=== PATIENT | female | born 1945 | race Caucasian/White ===

== ENCOUNTER 2023-04-24 02:47 | Inpatient (IN) | payer MEDICARE, SELFPAY ==
[2023-04-24] VITALS (25 sets, daily range): BP systolic 74–142; BP diastolic 44–95; PULSE 54–141; RESP 11–21; TEMP 36.1–36.6; O2SAT 93–99; BMI 25.0; BMI 22.4
--- NOTE | 2023-04-24 03:01 | ED.VIS.CHEST ---
HPI History of Present Illness Chief Complaint: Palpitations [facility] Medical History (Updated 04/24/23 @ 02:51 by Ayleen Carrasco) Afib Hyperlipemia Home Medications ascorbic acid (vitamin C) 1,000 mg tablet,extended release (C Complex) 1,000 mg PO DAILY 04/24/23 [History Last Taken Unknown] aspirin 325 mg capsule 325 mg PO DAILY heart health 04/24/23 [History Last Taken Unknown] cholecalciferol (vitamin D3) 25 mcg (1,000 unit) capsule (Vitamin D3) 25 mcg PO DAILY 04/24/23 [History Last Taken Unknown] coQ10 (ubiquinol) 100 mg capsule 100 mg PO DAILY 04/24/23 [History Last Taken Unknown] cyanocobalamin (vitamin B-12) 1 tab PO DAILY 04/24/23 [History Last Taken Unknown] diltiazem HCl 180 mg capsule,extended release 24 hr (Cardizem CD) 180 mg PO DAILY arrhythmia 04/24/23 [History Last Taken Unknown] lovastatin 20 mg tablet,extended release 24 hr (Altoprev) 20 mg PO .COMPLEX 04/24/23 [History Last Taken Unknown] magnesium 250 mg tablet 500 mg PO DAILY PRN constipation 04/24/23 [History Last Taken Unknown] omega 3 350 mg-dha 235 mg-epa 90 mg-fish oil 597 mg capsule,delay rel (Mart-3) 1 cap PO DAILY 04/24/23 [History Last Taken Unknown] Allergy/AdvReac Type Severity Reaction Status Date / Time No Known Allergies Allergy Verified 04/24/23 02:56 Surgical History (Updated 04/24/23 @ 02:51 by Ayleen Carrasco) H/O left mastectomy Social History Smoking Status: Never smoker EXAM Physical Exam Const Vital Signs: 04/24/23 02:49 04/24/23 02:49 04/24/23 03:02 Temperature 97.1 F L Temperature Source Temporal Pulse Rate 135 H Respiratory Rate 16 Respiratory Effort Normal Non-Labored Blood Pressure 123/81 H Blood Pressure Mean 95 Pulse Ox 98 Oxygen Delivery Method Room Air Room Air 04/24/23 03:11 04/24/23 03:24 04/24/23 03:44 Temperature Temperature Source Pulse Rate 130 H 118 H 117 H Respiratory Rate 17 14 16 Respiratory Effort Blood Pressure 142/95 H 98/61 95/76 Blood Pressure Mean 110 73 82 Pulse Ox 95 98 99 Oxygen Delivery Method Room Air Room Air 04/24/23 02:56 04/24/23 03:00 04/24/23 03:10 Temperature Temperature Source Pulse Rate 127 H 141 H 133 H Respiratory Rate 13 21 H 18 Respiratory Effort Blood Pressure 142/95 H Blood Pressure Mean 107 Pulse Ox 97 96 97 Oxygen Delivery Method 04/24/23 03:20 04/24/23 03:25 04/24/23 03:30 Temperature Temperature Source Pulse Rate 116 H 128 H 106 H Respiratory Rate 12 19 H 19 H Respiratory Effort Blood Pressure 98/61 Blood Pressure Mean 73 Pulse Ox 96 95 93 Oxygen Delivery Method Room Air 04/24/23 03:31 04/24/23 03:39 04/24/23 03:40 Temperature Temperature Source Pulse Rate 120 H 128 H 125 H Respiratory Rate 16 17 19 H Respiratory Effort Blood Pressure 88/57 L 74/44 L Blood Pressure Mean 67 52 Pulse Ox 96 94 Oxygen Delivery Method 04/24/23 03:43 04/24/23 03:46 04/24/23 03:50 Temperature Temperature Source Pulse Rate 113 H 116 H 113 H Respiratory Rate 12 14 11 L Respiratory Effort Blood Pressure 95/76 98/70 Blood Pressure Mean 84 80 Pulse Ox 95 95 95 Oxygen Delivery Method 04/24/23 04:00 04/24/23 04:39 04/24/23 05:00 Temperature Temperature Source Pulse Rate 126 H 119 H 109 H Respiratory Rate 14 16 16 Respiratory Effort Blood Pressure 89/72 L 106/64 108/74 Blood Pressure Mean 79 78 85 Pulse Ox 98 95 Oxygen Delivery Method Room Air Room Air Room Air MDM MDM MDM Narrative Medical decision making narrative: HISTORY OF PRESENT ILLNESS: 78-year-old female here with shortness of breath and palpitations began approximately 1 and half hours prior to ED arrival Notes history of A-fib. States he had similar symptoms but years ago. She further states symptoms began tonight acutely. They are nonexertional. Denies any bleeding diathesis or vomiting. Denies history of heart attacks. She is currently not on a blood thinner. The patient denies recent surgery in the last 4 weeks or immobilization in the last 3 days, denies previous diagnosis of DVT or PE, hemoptysis, unilateral leg swelling or malignancy with treatment the last 6 months or palliative. No estrogen use noted. REVIEW OF SYSTEMS: Pertinent positives: Shortness of breath, palpitations Pertinent negatives: Chest pain PHYSICAL EXAM: Nursing triage notes reviewed, Vital signs reviewed Constitutional: please see [facility] HENT: MMM Eyes: Pupils equal round and reactive to light, Extraocular muscles intact Neck: No stridor, no JVD, full neck ROM Lungs: Clear to auscultation, No wheezing or rales. No increased work of breathing, no conversational dyspnea, no accessory muscle use, no nasal flaring. No respiratory distress noted Heart: Fast irregular rhythm, No murmurs, No rubs and No gallops, 2+ distal pulses (radial, femoral, posterior tibial) in all extremities Abdomen: Soft, there is no tenderness, rigidity, rebound or guarding, no obvious peritoneal signs, no palpable pulsatile abdominal masses, no auscultated abdominal bruit : No CVAT Extremities: No edema Neuro: No focal neurological deficits, cranial nerves II through XII intact, 5/5 strength in all extremities. Intact sensation to light touch in all extremities, 2+ reflexes bilateral patella tendons. Normal gait. No ataxia. Skin: No rash or lesions noted MEDICAL DECISION MAKING: Chief Complaint: Palpitations, shortness of breath External records reviewed: No prior records noted in [employer] system, assess clinic thank however there is no records for either Factors affecting care: Per patient report A-fib, hyperlipidemia Social determinants of health: Denies illicit drug use History obtained from others: none Consults: Cardiology (Dr. Mustafa), Internal Medicine (Dr. Garcia) [facility] Narrative: Patient was initially tachycardic otherwise hemodynamically stable, afebrile nontoxic-appearing. Heart lung exam consistent with A-fib with RVR I considered the following differential diagnosis: A-fib with RVR, anemia, electrolyte maladies, ACS, PE, pneumonia, I obtained a broad lab and imaging workup to further elucidate etiology patient complaints I treated the patient with a 500 cc crystalloid bolus, 10 mg diltiazem bolus as well as 2 g magnesium infusion for chemical rate control. ALL IMAGES (IF OBTAINED) HAVE BEEN PERSONALLY REVIEWED AND INTERPRETED BY MYSELF. EKG with left bundle branch block, left axis even, prolonged QT interval, A-fib with RVR. No prior for comparison. CBC without leukocytosis, severe anemia, no thrombocytopenia. BMP within normal limits suggestive of no increased ventricular stretch, myocyte stretch or transmural pressure Initial troponin grossly elevated consistent myocardial ischemia BMP with hyponatremia, hypokalemia, no anion gap, no JAYCEE I have personally reviewed the patient's chest x-ray. Chest x-ray is unremarkable for pulmonary edema, pneumothorax, pneumonia or focal cardiopulmonary abnormality. The synthesis of the patient's history, physical exam, labs, images consultations suggest A-fib with RVR resulting in type II demand ischemia elevated troponin along with minor electrolyte abnormalities including hyponatremia and hypokalemia. Given patient elevated troponin and stop her elevated heart rate she be admitted for rate control, rehydration and further evaluation by cardiology. Spoke to Dr. Mustafa who recommended starting patient on Eliquis for anticoagulation. He did not think the patient's EKG was renewals representative of acute STEMI. Recommended observation for rate control. The patient and/or family, caregivers express understanding. The patient and/or family, caregivers agrees with the plan. Shared decision making: I will have a discussion with the patient and or visitors regarding risk/benefits of further testing or admission. They will be made aware of of the risk/benefits inherent in this decision they will be given the opportunity to voice understanding. Total critical care time today provided was at least 35 minutes. This excludes separately billable procedures. Critical care time (if documented) is secondary to the patient having high probability of clinically significant/life threatening deterioration in the patient's condition which required my urgent intervention. Impression: 1. A-fib with RVR 2. NSTEMI 3. Hypernatremia 4. Hypokalemia Dispo: PCU Lab Data Labs: Laboratory Results - last 24 hr 04/24/23 02:59 WBC 7.5 RBC 4.78 Hgb 14.7 Hct 45.7 MCV 95.6 MCH 30.8 MCHC 32.2 RDW Std Deviation 46.0 H RDW Coeff of Yfn 13.1 Plt Count 300 MPV 9.2 Immature Gran % (Auto) 0.300 Neut % (Auto) 59.7 Lymph % (Auto) 27.8 [place] % (Auto) 8.6 Eos % (Auto) 2.7 Baso % (Auto) 0.9 Absolute Neuts (auto) 4.5 Absolute Lymphs (auto) 2.07 Nucleated RBC % 0 Sodium 147 H Potassium 3.4 L Chloride 115 H Carbon Dioxide 25.0 Anion Gap 7 BUN 18 Creatinine 0.57 Estim Creat Clear Calc 34.42 Est GFR (MDRD) Af Amer 131 Est GFR (MDRD) Non-Af 108 BUN/Creatinine Ratio 31.4 H Glucose 105 Calcium 9.0 Troponin I High Sens 148 H* B-Natriuretic Peptide 88.4 Radiography Chest X-Ray - ED: Read by ED Physician Diagnostic Testing: Clinical Impression(s) from Imaging Studies Chest X-Ray 04/24/23 03:26 IMPRESSION: No radiographic evidence of acute cardiopulmonary disease. Electronically Signed: Asif Coombs MD at 4:29 EST , Discharge Plan Triage Chief Complaint: Palpitations ED Provider: Jose Carlos Hawkins Dx/Rx/DC Orders Prescriptions: No Action diltiazem HCl [Cardizem CD] 180 mg capsule,extended release 24hr 180 mg PO DAILY Altoprev 20 mg tablet extended release 24 hr 20 mg PO .COMPLEX Rx Instructions: 20 mg orally take every other day; aspirin 325 mg capsule 325 mg PO DAILY C Complex 1,000 mg tablet extended release 1,000 mg PO DAILY cyanocobalamin (vitamin B-12) 1 tab PO DAILY coQ10 (ubiquinol) 100 mg capsule 100 mg PO DAILY magnesium 250 mg tablet 500 mg PO DAILY PRN (Reason: constipation) Patient Comments: takes as needed; one 500 mg tablet Mart-3 350 mg-235 mg- 90 mg-597 mg capsule,delayed release(DR/EC) 1 cap PO DAILY cholecalciferol (vitamin D3) [Vitamin D3] 25 mcg (1,000 unit) capsule 25 mcg PO DAILY Primary Care Provider: SADI DAVILA Referrals: [facility] Doctor,Out of [Non-Staff] -
--- NOTE | 2023-04-24 03:02 | EKG12_ITS ---
Test Reason : PALPITATIONS Blood Pressure : / mmHG Vent. Rate : 137 BPM Atrial Rate : 000 BPM P-R Int : 000 ms QRS Dur : 120 ms QT Int : 340 ms P-R-T Axes : 000 -42 139 degrees QTc Int : 513 ms Atrial fibrillation with rapid ventricular response Left axis deviation Left ventricular hypertrophy with QRS widening ( R in aVL , Kelvin product , Romhilt-Cabrera ) Inferior infarct , age undetermined Marked ST abnormality, possible anterolateral subendocardial injury Abnormal ECG Confirmed by HUONG JUAREZ, BRONWYN ([id number]), health editor RHINA DEWITT ([id number]) on 04/26/2023 1:38:49 P M Referred By: EVITA Confirmed By:BIPIN BORJA MD
[2023-04-24 03:11] LABS: Absolute Lymphocyte Count 2.07 X10^3/uL (0.83-4.51); Absolute Neutrophil Count 4.5 X10^3/uL (2.0-7.7); Basophil# 0.07 X10^3/uL; Basophil% 0.9 % (0-1); Eosinophils% 2.7 % (0-5); Hematocrit 45.7 % (37-47); Hemoglobin 14.7 g/dL (12.0-15.0); Lymphocyte # 2.07 X10^3/ul (0.83-4.51); Lymphocyte % 27.8 % (19-41); Mean Corp Hgb Conc 32.2 g/dL (32-36); Mean Corpuscular Hgb 30.8 pg (27.0-32.0); Mean Corpuscular Volume 95.6 fL (81-99); Mean Platelet Vol. 9.2 fl (6.2-12.0); Monocyte# 0.64 X10^3/uL; Monocyte% 8.6 % (0-10); NRBC Flagged by Analyzer 0 % (0-5); Neutrophil # 4.45 X10^3/uL (2.7-7.7); Neutrophil % 59.7 % (47-70); Platelet Count 300 K/mm3 (150-450); RBC Distribution Width CV 13.1 % (11.6-14.6); Red Blood Count 4.78 M/mm3 (4.2-5.4); White Blood Count 7.5 K/mm3 (4.4-11.0)
[2023-04-24] MEDS: dilTIAZem 25 MG/5 ML Vial 10 MG IV BOLUS (03:11)
[2023-04-24] MEDS: 0.9% Normal Saline (1000mL) 1,000 ML 500 ML IV (03:12)
--- NOTE | 2023-04-24 03:26 | RAD_ITS ---
INDICATION: chest pain EXAMINATION/TECHNIQUE: X-RAY - XR Chest 1 View COMPARISON: None. FINDINGS: LINES/DEVICES: None. LUNGS: No pulmonary edema or focal airspace consolidation. No sizable pleural effusion. No pneumothorax detected. MEDIASTINUM AND CARDIOVASCULAR STRUCTURES: Heart size within normal limits for imaging technique. Mediastinal contours unremarkable. BONES AND SOFT TISSUES: No acute findings. RAD/Chest 1 View (Portable) IMPRESSION: No radiographic evidence of acute cardiopulmonary disease. Electronically Signed: Asif Coombs MD at 4:29 EST ,
[2023-04-24 03:32] LABS: BNP,B-Type NATRIURETIC PEPTIDE 88.4 pg/mL (0-100)
[2023-04-24] MEDS: Magnesium Sulfate 2 GM in Dextrose 5%-Water (100mL Bag) 100 ML IV (03:39)
[2023-04-24 03:43] LABS: Anion Gap 7 (5-15); BUN 18 mg/dL (7-18); BUN/Creat Ratio 31.4 RATIO (10-20); Chloride 115 mmol/L (98-107); Creatinine, Serum 0.57 mg/dL (0.55-1.02); EST Glomerular Filtration Rate 108 mL/min (>60); Est Glom Filt Rate - Afr Amer 131 mL/min (>60); Estimated Creatinine Clearance 34.42 ml/min; Glucose 105 mg/dL (74-106); Potassium 3.4 mmol/L (3.5-5.1); Sodium Level 147 mmol/L (136-145); Troponin-I HS (w/2H Reflex) 148 pg/mL (3.0-54.0)
[2023-04-24] MEDS: APIXABAN 2.5 MG TABLET (WCH) 5 MG PO (04:35)
[2023-04-24] MEDS: Aspirin 325 MG Tablet PO (04:35)
[2023-04-24 05:08] LABS: Reflex Troponin-HS? (from REC) Y
--- NOTE | 2023-04-24 05:19 | HP.PCM.HOS_ITS ---
HPI - General General Date of Admission: 04/24/23 Date of Service: 04/24/23 Chief Complaint: Palpitations, dyspnea. HPI Narrative The patient is a 69 y/o F w/ PMHx: Hx Breast CA ductal carcinoma s/p L mastectomy, PAF, HTN, HLD who presents to the [facility] ED on 04/24/23 with history of onset of dyspnea and palpitations, racing heart and dyspnea starting approximately 1.5 hours prior to ED arrival with concern for atrial fibrillation with RVR as she has had similar episode previously prompting eventual ED evaluation. She does report that has been several years since she has had an episode. She does report currently the palpation is lessening and improvement of her dyspnea. Workup in the ED included T97.1, heart rate 135, BP 123/81, re spiratory rate 16, 98% on room air--> BP 89/72, respiratory rate 14, heart rate 126, CBC with WBC 7.5, hemoglobin 14.7, platelet 300 without marked shift, BMP with sodium 147, potassium 3.4, chloride 115, troponin 148, BNP 8.4, EKG with left bundle branch block with mildly prolonged QT with atrial fibrillation with RVR, chest x-ray with no acute cardiopulmonary findings. In the ED patient ministered diltiazem 10 mg IV x 1 as well as a normal saline IV bolus. In the ED patient ministered magnesium 2 g IV x 1, diltiazem 10 mg IV x 1, aspirin full-strength, Eliquis 5 mg p.o. x 1 as well as 1500 mL normal saline. ED discussed case with Dr. Mustafa. [facility] Medical History (Updated 04/24/23 @ 05:[address] Kimberlee Garcia MD) History of ductal carcinoma in situ (DCIS) of breast HTN (hypertension) Hyperlipemia PAF (paroxysmal atrial fibrillation) Home Medications ascorbic acid (vitamin C) 1,000 mg tablet,extended release (C Complex) 1,000 mg PO DAILY 04/24/23 [History Last Taken Unknown] aspirin 325 mg capsule 325 mg PO DAILY heart health 04/24/23 [History Last Taken Unknown] cholecalciferol (vitamin D3) 25 mcg (1,000 unit) capsule (Vitamin D3) 25 mcg PO DAILY 04/24/23 [History Last Taken Unknown] coQ10 (ubiquinol) 100 mg capsule 100 mg PO DAILY 04/24/23 [History Last Taken Unknown] cyanocobalamin (vitamin B-12) 1 tab PO DAILY 04/24/23 [History Last Taken Unknown] diltiazem HCl 180 mg capsule,extended release 24 hr (Cardizem CD) 180 mg PO DAILY arrhythmia 04/24/23 [History Last Taken Unknown] lovastatin 20 mg tablet,extended release 24 hr (Altoprev) 20 mg PO .COMPLEX 04/24/23 [History Last Taken Unknown] magnesium 250 mg tablet 500 mg PO DAILY PRN constipation 04/24/23 [History Last Taken Unknown] omega 3 350 mg-dha 235 mg-epa 90 mg-fish oil 597 mg capsule,delay rel (Bypro-3) 1 cap PO DAILY 04/24/23 [History Last Taken Unknown] Allergy/AdvReac Type Severity Reaction Status Date / Time No Known Allergies Allergy Verified 04/24/23 02:56 Family History (Updated 04/24/23 @ 05:[address] Kimberlee Garcia MD) Mother Cardiac arrhythmia Renal cancer Father CVA (cerebral vascular accident) Hypertension Surgical History H/O left mastectomy Social History (Updated 04/24/23 @ 05:[address] Kimberlee Garcia MD) household members: spouse current occupational status: retired and other details: Retired teacher. Smoking Status: Never smoker alcohol intake: never substance use type: does not use ROS ROS Narrative Admission Review of Systems: CONSTITUTIONAL: No weight loss, fever, chills, + weakness or fatigue. HEENT: Eyes: No visual loss, blurred vision, double vision or yellow sclerae. Ears, Nose, Throat: No hearing loss, sneezing, congestion, runny nose or sore throat. SKIN: No rash or itching, lesions, wounds. CARDIOVASCULAR: + Palpitations, racing heart. No chest pain, chest pressure or chest discomfort, edema, orthopnea, syncopal events. RESPIRATORY: + shortness of breath. No cough or sputum, wheezing, hemoptysis. GASTROINTESTINAL: No anorexia, nausea, vomiting or diarrhea, abdominal pain, melena, BRBPR. GENITOURINARY: No dysuria, frequency, urgency or retention. NEUROLOGICAL: No headache, dizziness, syncope, paralysis, ataxia, numbness or tingling in the extremities, focal weakness, change in bowel or bladder control, seizure. MUSCULOSKELETAL: + muscle, back pain, joint pain or stiffness. HEMATOLOGIC: No anemia, bleeding or bruising. LYMPHATICS: No enlarged nodes. No history of splenectomy. PSYCHIATRIC: No history of depression or anxiety. ENDOCRINOLOGIC: No reports of sweating, cold or heat intolerance. No polyuria or polydipsia. ALLERGIES: No history of asthma, hives, eczema or rhinitis. Vital Signs Vital Signs Vital Signs: 04/24/23 02:49 04/24/23 02:49 04/24/23 03:02 Temperature 97.1 F L Temperature Source Temporal Pulse Rate 135 H Respiratory Rate 16 Respiratory Effort Normal Non-Labored Blood Pressure 123/81 H Blood Pressure Mean 95 Pulse Ox 98 Oxygen Delivery Method Room Air Room Air 04/24/23 03:11 04/24/23 03:24 04/24/23 03:44 Temperature Temperature Source Pulse Rate 130 H 118 H 117 H Respiratory Rate 17 14 16 Respiratory Effort Blood Pressure 142/95 H 98/61 95/76 Blood Pressure Mean 110 73 82 Pulse Ox 95 98 99 Oxygen Delivery Method Room Air Room Air 04/24/23 02:56 04/24/23 03:00 04/24/23 03:10 Temperature Temperature Source Pulse Rate 127 H 141 H 133 H Respiratory Rate 13 21 H 18 Respiratory Effort Blood Pressure 142/95 H Blood Pressure Mean 107 Pulse Ox 97 96 97 Oxygen Delivery Method 04/24/23 03:20 04/24/23 03:25 04/24/23 03:30 Temperature Temperature Source Pulse Rate 116 H 128 H 106 H Respiratory Rate 12 19 H 19 H Respiratory Effort Blood Pressure 98/61 Blood Pressure Mean 73 Pulse Ox 96 95 93 Oxygen Delivery Method Room Air 04/24/23 03:31 04/24/23 03:39 04/24/23 03:40 Temperature Temperature Source Pulse Rate 120 H 128 H 125 H Respiratory Rate 16 17 19 H Respiratory Effort Blood Pressure 88/57 L 74/44 L Blood Pressure Mean 67 52 Pulse Ox 96 94 Oxygen Delivery Method 04/24/23 03:43 04/24/23 03:46 04/24/23 03:50 Temperature Temperature Source Pulse Rate 113 H 116 H 113 H Respiratory Rate 12 14 11 L Respiratory Effort Blood Pressure 95/76 98/70 Blood Pressure Mean 84 80 Pulse Ox 95 95 95 Oxygen Delivery Method 04/24/23 04:00 04/24/23 04:39 04/24/23 05:00 Temperature Temperature Source Pulse Rate 126 H 119 H 109 H Respiratory Rate 14 16 16 Respiratory Effort Blood Pressure 89/72 L 106/64 108/74 Blood Pressure Mean 79 78 85 Pulse Ox 98 95 Oxygen Delivery Method Room Air Room Air Room Air Weight Weight: 132 lb 11.492 oz Body Mass Index (BMI) 25.0 Physical Exam Narrative Physical Examination: General: Awake, alert, oriented x 3 and cooperative, seated upright in the ED bed, fatigued but no acute distress. Skin: Normal color, normal turgor, no icterus, no cyanosis. HEENT: AT/NC, EOMI, PERRLA, mildly dry MM, no carotid bruits or JVD noted. Lungs: CTA bilaterally, moderate effort, mild decrease BL bases, no rales, ronchi or wheezing. Heart: Irregular irregular; no gallop, rub audible. Abdomen: Soft, NTTP, ND, distant normal BS, no HSM. Extremities: No cyanosis, clubbing, or edema. Neurological: Patient awake, alert, oriented as noted, cognitive function intact; pupils equally reactive to light and accommodation, cranial nerves II- XII grossly normal, moving all 4 extremities, no focal deficits, strength mildly to moderately globally decreased secondary to acute presentation. Psychiatric: Affect appears fatigued, no acute evidence of depressive or anxiety feelings. Results Lab / Micro Data 04/24/23 02:59 04/24/23 02:59 Labs: Laboratory Results - last 24 hr 04/24/23 02:59: WBC 7.5, RBC 4.78, Hgb 14.7, Hct 45.7, MCV 95.6, MCH 30.8, MCHC 32.2, RDW Std Deviation 46.0 H, RDW Coeff of Yfn 13.1, Plt Count 300, MPV 9.2, Immature Gran % (Auto) 0.300, Neut % (Auto) 59.7, Lymph % (Auto) 27.8, [place] % (Auto) 8.6, Eos % (Auto) 2.7, Baso % (Auto) 0.9, Absolute Neuts (auto) 4.5, Abs olute Lymphs (auto) 2.07, Nucleated RBC % 0, Sodium 147 H, Potassium 3.4 L, Chloride 115 H, Carbon Dioxide 25.0, Anion Gap 7, BUN 18, Creatinine 0.57, Estim Creat Clear Calc 34.42, Est GFR (MDRD) Af Amer 131, Est GFR (MDRD) Non-Af 108, BUN/Creatinine Ratio 31.4 H, Glucose 105, Calcium 9.0, Troponin I High Sens 148 H*, B-Natriuretic Peptide 88.4 Imagaing Radiology Impression Chest X-Ray 04/24/23 03:26 IMPRESSION: No radiographic evidence of acute cardiopulmonary disease. Electronically Signed: Asif Coombs MD at 4:29 EST , Assessment & Plan Assessment/Plan (1) Atrial fibrillation with RVR: PLAN: Plan The patient is a 69 y/o F w/ PMHx: Hx Breast CA ductal carcinoma s/p L mastectomy, PAF, HTN, HLD who presents to the [facility] ED on 04/24/23 with history of onset of dyspnea and palpitations, racing heart and dyspnea starting approximately 1.5 hours prior to ED arrival with concern for atrial fibrillation with RVR as she has had similar episode previously prompting eventual ED evaluation. #1. Paroxsymal atrial fibrillation w/ RVR with indeterminate cardiac enzyme suspected secondary to ongoing RVR but certainly could be an evolving NSTEMI: EK G in ED w/ atrial fibrillation w/ RVR. Patient administered Cardizem bolus in ED. Will admit to PCU, maintain on telemetry, obtain cardiac enzyme serial set, obtain magnesium level, obtain ECHO, obtain TSH level. Patient administered Eliquis 5 mg p.o. x 1 in the ED however in case enzymes significantly trends upward and there is need for cardiac catheterization we will hold this and next dose due would plan potentially therapeutic Lovenox versus heparin drip unless enzyme trending down then would continue with oral eliquis. Will continue aspirin therapy. Rate improved with cardizem bolus x 1. Will restart home diltiazem. Will request cardiology consult. #2. Hypokalemia: Admission K+ 3.4, magnesium level requested, supplementation given, repeat level in AM. # 3. History of breast cancer, ductal carcinoma: Status post left mastectomy, considered in remission, encourage continued outpatient follow-up as previously arranged. # 4. Hypertension: BP low normal after Cardizem, improving, will restart home oral diltiazem regimen. #5. Hyperlipidemia: We will continue patient on statin therapy, FLP in AM. #6. DVT prophylaxis: Patient administered Eliquis 5 mg p.o. x 1 in the ED h owever in case enzymes significantly trends upward and there is need for cardiac catheterization we will hold this and next dose due would plan potentially therapeutic Lovenox versus heparin drip unless enzyme trending down then would continue with oral eliquis. #7. CODE status: Patient HCPJENNIFER is her who is present and living will is currently in place. Discussed CODE status at length including difference between FULL code, DNR-CCA and DNR-CC status. Following discussions about the diff erences in these status, requested Full Code status. Advanced Care Planning Face to Face Time: 16 minutes. Charges/Coding Visit Charges Inpatient E&M: 76265 Init Hosp L3 Procedures Hospitalists Procedures: 26001 Advncd Care Plan 30 Min
[2023-04-24] MEDS: 0.9% Normal Saline (1000mL) 1,000 ML 999 ML IV (05:34)
[2023-04-24 05:55] LABS: Troponin-I HS 340 pg/mL (3.0-54.0)
[2023-04-24 06:02] LABS: Magnesium 3.1 mg/dL (1.6-2.6)
--- NOTE | 2023-04-24 06:37 | ECHOD_ITS ---
Reason For Study: AFib/Flutter Procedure This was a 2D Doppler, Color Flow transthoracic echocardiogram. Exam performed portable in patient room. Left Ventricle Normal LV size. The estimated ejection fraction is 55 %. No evidence for diastolic dysfunction. No regional wall motion abnormalities noted. Right Ventricle Normal RV size. Normal systolic function. Atria Normal left atrium. Normal right atrium. No doppler evidence for ASD. Mitral Valve There is moderate mitral annular calcification. There is no mitral valve stenosis. No mitral valve insufficiency. Tricuspid Valve There is no tricuspid stenosis. Trivial tricuspid valve insufficiency. Pulmonary artery systolic pressure is 25 mmHg. Aortic Valve Trisinus/trileaflet aortic valve. There is no aortic stenosis. Trivial aortic valve insufficiency. Pulmonic Valve There is no pulmonic valvular stenosis. No pulmonic valve insufficiency. MMode/2D Measurements & Calculations LVIDd: 3.5 cm IVSd: 1.6 cm Ao root diam: 3.5 cm LVIDs: 2.4 cm LVPWd: 1.3 cm LA dimension: 3.1 cm RVDd: 3.4 cm FS: 33.2 % LAV(MOD-bp): 27.9 ml LA A4 area: 11.6 cm2 RA A4 area: 12.2 cm2 LAV(MOD-bp) Indexed: 18.5 ml/m2 LAV(MOD-sp2): 30.6 ml LAV(MOD-sp4): 25.1 ml TAPSE: 2.0 cm Time Measurements MV dec time: 0.24 sec Doppler Measurements & Calculations MV E max anuj: 49.2 cm/sec Lat Peak E' Anuj: 6.0 cm/sec Med Peak E' Anuj: 4.3 cm/sec MV A max anuj: 100.0 cm/sec E/E' lat: 8.2 E/E' med: 11.5 MV E/A: 0.49 MV V2 max: 100.7 cm/sec MV P1/2t max anuj: 51.6 cm/sec Ao V2 max: 147.9 cm/sec MV max P.1 mmHg MV P1/2t: 76.0 msec Ao max P.8 mmHg MV V2 mean: 39.7 cm/sec MV dec slope: 198.9 cm/sec2 Ao V2 mean: 116.5 cm/sec MV mean P.85 mmHg Ao mean P.8 mmHg MV V2 VTI: 29.6 cm MVA(P1/2t): 2.9 cm2 Ao V2 VTI: 33.5 cm AV (velocity ratio): 1.0 AI max anuj: 415.2 cm/sec LV V1 max: 151.1 cm/sec PA V2 max: 84.0 cm/sec AI max P.0 mmHg LV V1 max P.1 mmHg PA V2 mean: 55.2 cm/sec AI dec slope: 165.1 cm/sec2 LV V1 mean P.3 mmHg AI P1/2t: 736.7 msec LV V1 mean: 109.9 cm/sec LV V1 VTI: 33.9 cm TR max anuj: 234.5 cm/sec TR max P.0 mmHg ECHO/Echo Complete Interpretation Summary The estimated ejection fraction is 55 %. No evidence for diastolic dysfunction. Trivial aortic valve insufficiency. Ordering Physician: Kimberlee Garcia Performed By: Dimas Torres RCS
[2023-04-24] MEDS: Potassium Chloride Oral Tablet 20 MEQ 40 MEQ PO (07:07)
[2023-04-24] MEDS: dilTIAZem CD 180 MG Capsule PO (07:07)
--- NOTE | 2023-04-24 08:18 | EKG12_ITS ---
Test Reason : Blood Pressure : / mmHG Vent. Rate : 058 BPM Atrial Rate : 058 BPM P-R Int : 140 ms QRS Dur : 116 ms QT Int : 458 ms P-R-T Axes : 061 -44 122 degrees QTc Int : 449 ms Sinus bradycardia Left axis deviation Left ventricular hypertrophy with QRS widening and repolarization abnormality ( R in aVL , Kelvin pr oduct , Romhilt-Cabrera ) Cannot rule out Septal infarct , age undetermined Inferior infarct , age undetermined Abnormal ECG When compared with ECG of 24-APR-2023 02:51, MANUAL COMPARISON REQUIRED, DATA IS UNCONFIRMED Confirmed by EDGAR JUAREZ, LESLIE ([id number]), editorial cartoonist RHINA DEWITT ([id number]) on 04/27/2023 11:00:29 AM Referred By: [place] Confirmed By:LESLIE HERNÁNDEZ MD
[2023-04-24 09:34] LABS: Troponin-I HS 573 pg/mL (3.0-54.0)
--- NOTE | 2023-04-24 11:35 | CON.PCM.CA_ITS ---
Assessment & Plan Assessment/Plan (1) Atrial fibrillation with RVR: PLAN: Converted to sinus rhythm. We will keep her on current dose of diltiazem as her blood pressure and heart rate are on the low side. I did recommend Eliquis. Explained the risks and benefits. Patient will discuss with her primary parish visitor on Wednesday. She prefers this approach.From a cardiac standpoint patient is stable and can be discharged home. She can follow-up with her primary parish visitor as an outpatient. HPI Consult Data Date of Consult: 04/24/23 HPI Narrative Reason for Consultation: Atrial fibrillation with RVR HPI Narrative: EDUIN SMITH, is a 78 F who presents with palpitations. She was found to be in A-fib with RVR.She was given IV Cardizem in the emergency room and was admitted to the PCU because her high-sensitivity troponin was minimally elevated. Patient denies any chest pain. She has converted to sinus rhythm. She is completely asymptomatic. She has history of paroxysmal A-fib and has a parish visitor in [place] who she follows with. Review of systems: All systems reviewed. All system negative except as in HPI [facility] Medical History (Updated 04/24/23 @ 05:[address] Kimberlee Garcia MD) History of ductal carcinoma in situ (DCIS) of breast HTN (hypertension) Hyperlipemia PAF (paroxysmal atrial fibrillation) Home Medications ascorbic acid (vitamin C) 1,000 mg tablet,extended release (C Complex) 1,000 mg PO DAILY 04/24/23 [History Last Taken Unknown] aspirin 325 mg capsule 325 mg PO DAILY heart health 04/24/23 [History Last Taken Unknown] cholecalciferol (vitamin D3) 25 mcg (1,000 unit) capsule (Vitamin D3) 25 mcg PO DAILY 04/24/23 [History Last Taken Unknown] coQ10 (ubiquinol) 100 mg capsule 100 mg PO DAILY 04/24/23 [History Last Taken Unknown] cyanocobalamin (vitamin B-12) 1 tab PO DAILY 04/24/23 [History Last Taken Unknown] diltiazem HCl 180 mg capsule,extended release 24 hr (Cardizem CD) 180 mg PO DAILY arrhythmia 04/24/23 [History Last Taken Unknown] lovastatin 20 mg tablet,extended release 24 hr (Altoprev) 20 mg PO .COMPLEX 04/24/23 [History Last Taken Unknown] magnesium 250 mg tablet 500 mg PO DAILY PRN constipation 04/24/23 [History Last Taken Unknown] omega 3 350 mg-dha 235 mg-epa 90 mg-fish oil 597 mg capsule,delay rel ([place]-3) 1 cap PO DAILY 04/24/23 [History Last Taken Unknown] Allergy/AdvReac Type Severity Reaction Status Date / Time No Known Allergies Allergy Verified 04/24/23 02:56 Family History (Updated 04/24/23 @ 05:[address] Kimberlee Garcia MD) Mother Cardiac arrhythmia Renal cancer Father CVA (cerebral vascular accident) Hypertension Surgical History H/O left mastectomy Social History (Updated 04/24/23 @ 05:[address] Kimberlee Garcia MD) household members: spouse current occupational status: retired and other details: Retired teacher. Smoking Status: Never smoker alcohol intake: never substance use type: does not use Physical Exam Const alert and oriented x3 HEENT normocephalic Eyes no scleral icterus Resp normal respiratory effort Skin no rashes or lesions noted Risk Stratification Risk Stratification Applicable: No Charges/Coding Visit Charges Inpatient E&M: 82800 Init Hosp L2 Objective Data Vital Signs: Vital Signs Temp Pulse Resp BP Pulse Ox O2 Del Method 97.8 F 54 L 18 111/65 96 Room Air 04/24/23 08:30 04/24/23 08:30 04/24/23 08:30 04/24/23 08:30 04/24/23 08:30 04/24/23 08:30 Oxygen Delivery Method Room Air Weight: 118 lb 13.266 oz Body Mass Index (BMI) 22.4 Intake & Output: Intake and Output for Last 24 Hours 04/22/23 04/23/23 04/24/23 23:59 23:59 23:59 Intake Total 2103 / 2104 Balance 2103 Lab / Micro Data 04/24/23 02:59 04/24/23 02:59 Labs: Laboratory Results - last 24 hr 04/24/23 02:59: WBC 7.5, RBC 4.78, Hgb 14.7, Hct 45.7, MCV 95.6, MCH 30.8, MCHC 32.2, RDW Std Deviation 46.0 H, RDW Coeff of Yfn 13.1, Plt Count 300, MPV 9.2, Immature Gran % (Auto) 0.300, Neut % (Auto) 59.7, Lymph % (Auto) 27.8, [place] % (Auto) 8.6, Eos % (Auto) 2.7, Baso % (Auto) 0.9, Absolute Neuts (auto) 4.5, Absolute Lymphs (auto) 2.07, Nucleated RBC % 0, Sodium 147 H, Potassium 3.4 L, Chloride 115 H, Carbon Dioxide 25.0, Anion Gap 7, BUN 18, Creatinine 0.57, Estim Creat Clear Calc 34.42, Est GFR (MDRD) Af Amer 131, Est GFR (MDRD) Non-Af 108, BUN/Creatinine Ratio 31.4 H, Glucose 105, Calcium 9.0, Troponin I High Sens 148 H*, B-Natriuretic Peptide 88.4 04/24/23 05:04: Magnesium 3.1 H, Troponin I High Sens 340 H* 04/24/23 08:51: Troponin I High Sens 573 H* Cardiology Labs/Tests 04/24/23 02:59: WBC 7.5, RBC 4.78, Hgb 14.7, Hct 45.7, MCV 95.6, MCH 30.8, MCHC 32.2, Plt Count 300, MPV 9.2, Immature Gran % (Auto) 0.300, Neut % (Auto) 59.7, Lymph % (Auto) 27.8, [place] % (Auto) 8.6, Eos % (Auto) 2.7, Baso % (Auto) 0.9, Absolute Neuts (auto) 4.5, Nucleated RBC % 0, Sodium 147 H, Potassium 3.4 L, Chloride 115 H, Carbon Dioxide 25.0, Anion Gap 7, BUN 18, Creatinine 0.57, Est GFR (MDRD) Af Amer 131, Est GFR (MDRD) Non-Af 108, BUN/Creatinine Ratio 31.4 H, Glucose 105, Calcium 9.0, B-Natriuretic Peptide 88.4 04/24/23 05:04: Magnesium 3.1 H Rhythm: EKG: ECHO: Stress Test: Cardiac Cath: PCI: CT Surgery: Holter monitor: EPS: PPM: CXR: Chest CT Scan: Radiography Diagnostic Testing: Radiology Impression Chest X-Ray 04/24/23 03:26 IMPRESSION: No radiographic evidence of acute cardiopulmonary disease. Electronically Signed: Asif Coombs MD at 4:29 EST ,
--- NOTE | 2023-04-24 12:21 | DS.PCM_ITS ---
Providers Date of Admission: 04/24/23 Date of Discharge: 04/24/23 Primary Care Physician: SADI DAVILA Consultations 04/24/23 06:37 Consult: Cardiology Routine Consulting Provider: Gayle Mustafa Reason for Consult: PAF with RVR, elevated troponin EMERGENT Consult: No MD Notified: Yes Date Notified: 04/24/23 Time Notified: 05:27 Method of Notification: ED Physician Initiated Reason For Visit: PAF WITH RVR, ELEVATED TROPONIN Diagnosis Discharge Diagnosis (1) Atrial fibrillation with RVR: Status: Acute Code(s): I48.91 - Unspecified atrial fibrillation Medications at Discharge Home Medications ascorbic acid (vitamin C) 1,000 mg tablet,extended release (C Complex) 1,000 mg PO DAILY 04/24/23 aspirin 325 mg capsule 325 mg PO DAILY heart health 04/24/23 cholecalciferol (vitamin D3) 25 mcg (1,000 unit) capsule (Vitamin D3) 25 mcg PO DAILY 04/24/23 coQ10 (ubiquinol) 100 mg capsule 100 mg PO DAILY 04/24/23 cyanocobalamin (vitamin B-12) 1 tab PO DAILY 04/24/23 diltiazem HCl 180 mg capsule,extended release 24 hr (Cardizem CD) 180 mg PO DAILY arrhythmia 04/24/23 lovastatin 20 mg tablet,extended release 24 hr (Altoprev) 20 mg PO .COMPLEX 04/24/23 magnesium 250 mg tablet 500 mg PO DAILY PRN constipation 04/24/23 omega 3 350 mg-dha 235 mg-epa 90 mg-fish oil 597 mg capsule,delay rel ([place]-3) 1 cap PO DAILY 04/24/23 Hospital Course Operations None Procedures None Summary of Care Provided Minutes Spent on Discharge: 20 Hospital Course: Mrs. Loza is a 78-year-old white female who presents emergency department hours, hospital on the early on the morning of 04/24/2023 with acute onset shortness of breath and palpitations that started about 1-1/2 hours prior to arrival to the emergency department. She noticed her heart was racing as well. She has a history of atrial fibrillation and at baseline is on aspirin and takes diltiazem 180 mg daily. She reported it has been several years since she has had an episode like this and follows with a bill of lading clerk in [facility]. It sounds like as if she has not seen her bill of lading clerk in some time as well. Vital signs on presentation showed a temperature of 97.1, heart rate of 135, blood pressure is 123/81, respiratory rate 16 oxygen saturations were 98% on room air. CBC was unremarkable. BMP showed some mild hyponatremia with a sodium of 147, hypokalemia with a potassium of 3.4 and initial troponin was 148. Her BNP was unremarkable at 8.4. EKG shows a left bundle branch block with a mildly long QT and A-fib with RVR. Chest x-ray was unremarkable. In the emergency room room she received diltiazem 10 mg x 1 dose and a full dose aspirin as well as Eliquis 5 mg p.o. and IV fluids with a total volume of 1500 cc. The case was discussed with negative Dr. Mustafa prior to admission. She was admitted to the PCU and monitored on telemetry. Cardiac enzymes were cycled however the patient did not have any chest pain throughout her hospital course. Her electrolytes were replaced. Her cardiac enzymes did trend up however cardiology feels like this is likely rate induced due to her RVR and evaluated the patient and felt that she could be discharged back on her home Cardizem given the fact that she is now back in normal sinus rhythm and completely asymptomatic. We did obtain an echocardiogram during her hospital course which demonstrated an ejection fraction of 55% with no evidence of diastolic dysfunction, no wall motion abnormality and trivial aortic valve insufficiency. He recommended starting Eliquis however the patient preferred to discuss this further with her primary bill of lading clerk before initiating. Her [id number] score is 4 and we did discuss the reasons why she probably should be started on full anticoagulation but again she preferred to talk to her primary bill of lading clerk first. She was able to be discharged home with no medication changes on 04/24/2023. We have asked her to follow-up with her primary bill of lading clerk and call on Wednesday to schedule an ap pointment to be seen as soon as availability permits. Hospital stay was much shorter than anticipated due to patient converting spontaneously back in normal sinus rhythm and being asymptomatic with an unremarkable echocardiogram. Discharge diagnoses: Paroxysmal atrial fibrillation with RVR Troponin elevation secondary to A-fib with RVR Hypokalemia-resolved Hypertension Hyperlipidemia History of breast cancer Physical Exam Const alert, oriented x3, no apparent distress, average body habitus, no limitations, healthy appearing and well nourished Constitutional Narrative: Very pleasant, older white female, sitting on the edge of the bed, appears comfortable and nontoxic, at bedside, patient appears younger than stated age General Appearance: cooperative, comfortable, well kempt and well developed HEENT normocephalic, head/scalp atraumatic, hearing grossly normal bilaterally and moist oral mucous membranes HEENT Narrative: Mallampati 2, no thrush Resp normal respiratory effort, no retractions, no use of accessory muscles and clear to auscultation bilaterally Auscultation: Negative for rales, rhonchi or wheezes Cardio regular rate, regular rhythm, S1 normal heart sound, S2 normal heart sound, no murmurs, no rub, no gallops and no clicks GI normal to inspection, nondistended, normoactive bowel sounds, soft to palpation and non-tender Extremity no clubbing, cyanosis or edema Neuro oriented x3, moves all extremities and no focal motor deficits Speech: speech normal Psych affect normal Psych Narrative: Very pleasant, interacts appropriately Weight / BMI Weight Weight: 53.9 kg Body Mass Index (BMI) 22.4 ABG / Lab / Microbiology Data 04/24/23 02:59 04/24/23 02:59 Laboratory: Laboratory Results - last 24 hr 04/24/23 02:59: WBC 7.5, RBC 4.78, Hgb 14.7, Hct 45.7, MCV 95.6, MCH 30.8, MCHC 32.2, RDW Std Deviation 46.0 H, RDW Coeff of Yfn 13.1, Plt Count 300, MPV 9.2, Immature Gran % (Auto) 0.300, Neut % (Auto) 59.7, Lymph % (Auto) 27.8, [place] % (Auto) 8.6, Eos % (Auto) 2.7, Baso % (Auto) 0.9, Absolute Neuts (auto) 4.5, Absolute Lymphs (auto) 2.07, Nucleated RBC % 0, Sodium 147 H, Potassium 3.4 L, Chloride 115 H, Carbon Dioxide 25.0, Anion Gap 7, BUN 18, Creatinine 0.57, Estim Creat Clear Calc 34.42, Est GFR (MDRD) Af Amer 131, Est GFR (MDRD) Non-Af 108, BUN/Creatinine Ratio 31.4 H, Glucose 105, Calcium 9.0, Troponin I High Sens 148 H*, B-Natriuretic Peptide 88.4 04/24/23 05:04: Magnesium 3.1 H, Troponin I High Sens 340 H* 04/24/23 08:51: Troponin I High Sens 573 H* Radiography Diagnostic Testing: Radiology Impression Chest X-Ray 04/24/23 03:26 IMPRESSION: No radiographic evidence of acute cardiopulmonary disease. Electronically Signed: Asif Coombs MD at 4:29 EST , Echocardiogram 04/24/23 06:37 Interpretation Summary The estimated ejection fraction is 55 %. No evidence for diastolic dysfunction. Trivial aortic valve insufficiency. Ordering Physician: Kimberlee Garcia Performed By: Dimas Torres RCS D/C Instructions Discharge Diet: Low fat / Low cholesterol Meaningful Use Info Meaningful Use Diagnoses (Choose all that apply): None applicable Discharge Plan Admission Admit Date/Time: 04/24/23 05:19 Primary Reason for Your Visit: Palpitations/shortness of breath Attending Provider: Cathie Metcalf Primary Care Provider: SADI DAVILA Consulting Providers: Gayle Mustafa; Kimberlee Garcia Instructions Additional Instructions / Restrictions: 1. You were found to have recurrent A-fib with RVR. Please follow-up with your primary bill of lading clerk to discuss ongoing management as well as to discuss starting systemic anticoagulation with an increased risk of stroke due to your atrial fibrillation. Discharge Orders/Prescriptions Prescriptions: Continued diltiazem HCl [Cardizem CD] 180 mg capsule,extended release 24hr 180 mg PO DAILY Altoprev 20 mg tablet extended release 24 hr 20 mg PO .COMPLEX Rx Instructions: 20 mg orally take every other day; aspirin 325 mg capsule 325 mg PO DAILY C Complex 1,000 mg tablet extended release 1,000 mg PO DAILY cyanocobalamin (vitamin B-12) 1 tab PO DAILY coQ10 (ubiquinol) 100 mg capsule 100 mg PO DAILY magnesium 250 mg tablet 500 mg PO DAILY PRN (Reason: constipation) Patient Comments: takes as needed; one 500 mg tablet [place]-3 350 mg-235 mg- 90 mg-597 mg capsule,delayed release(DR/EC) 1 cap PO DAILY cholecalciferol (vitamin D3) [Vitamin D3] 25 mcg (1,000 unit) capsule 25 mcg PO DAILY Referrals / Follow Up: SADI DAVILA [Other] [facility] [address] Doctor,Out of [Non-Staff] - Disposition Disposition (needs filled in before D/C Order can be placed): Home, Self Care Charges/Coding Visit Charges Inpatient E&M: 95373 Disch Hosp
--- NOTE | 2023-04-24 14:46 | CASEMGMT ---
TINO GORDILLO Discharge Planning Assessment: This RN CM met with pt at bedside. Pt alert with spouse at bedside. Noted pt with discharge order and preparing to get dressed to leave. No new prescriptions noted in DC instructions. Pt denies any discharge needs or concerns at this time. Pt declined to provide pharmacy for record as she stated she is not from here. Duc Almaguer RN CM
== END 2023-04-24 15:04 | disposition home or self-care (01) | DRG 309 ==
LOC: ED 03:45 → PCU 05:37
PROVIDERS: Admitting Provider Family Medicine; Emergency Provider Emergency Medicine; Visit Provider Internal Medicine
DX: I48.0 Paroxysmal atrial fibrillation (principal); E87.0 Hyperosmolality and hypernatremia; I10 Essential (primary) hypertension; E78.5 Hyperlipidemia, unspecified; I45.81 Long QT syndrome; E87.6 Hypokalemia; Z90.12 Acquired absence of left breast and nipple; Z79.82 Long term (current) use of aspirin
CPT/HCPCS: 36415; 71045; 80048; 83735; 83880; 84484; 85025; 93005; 93306; 94668; 99285; J7040; Q9957; A4216

== ENCOUNTER 2024-01-22 15:50 | Emergency (ER) | payer MEDICARE, SELFPAY ==
[2024-01-22] VITALS (11 sets, daily range): BP systolic 96–165; BP diastolic 55–79; PULSE 47–60; RESP 11–19; TEMP 36.3–37; O2SAT 94–98; BMI 23.5
--- NOTE | 2024-01-22 16:10 | RAD_ITS ---
EXAM: XR CHEST, 1 VIEW CLINICAL INDICATION: dizziness TECHNIQUE: Frontal view of the chest. COMPARISON: No relevant prior studies available. FINDINGS: LUNGS AND PLEURAL SPACES: Unremarkable. No consolidation or edema. No pneumothorax. No effusion. HEART: Unremarkable. Cardiac silhouette not enlarged. MEDIASTINUM: Central airways and mediastinal contour are unremarkable. BONES/JOINTS: Unremarkable. No acute fracture. SOFT TISSUES: Unremarkable. RAD/Chest 1 View (Portable) IMPRESSION: No radiographic evidence of acute cardiopulmonary disease. Electronically Signed: Flako Mendez MD at 17:13 EDT ,
--- NOTE | 2024-01-22 16:13 | EKG12_ITS ---
Test Reason : DIZZY Blood Pressure : / mmHG Vent. Rate : 052 BPM Atrial Rate : 052 BPM P-R Int : 148 ms QRS Dur : 138 ms QT Int : 472 ms P-R-T Axes : 067 -40 117 degrees QTc Int : 438 ms Sinus bradycardia Left axis deviation Left bundle branch block Abnormal ECG Confirmed by Samuel Corea ([id number]), editor & co founder SHLOMO JOYCE ([id number]) on 01/24/2024 10:24:05 AM Referred By: TA/MAYRA Confirmed By:Samuel Corea
--- NOTE | 2024-01-22 16:18 | ED.RN ---
HOSE INSPECTOR ASLANDIES AT BEDSIDE FOR ORTHO'S, HE REQUESTED NO SITTING ORTHO'S.
[2024-01-22] MEDS: 0.9% Normal Saline (1000mL) 1,000 ML 999 ML IV (16:19)
--- NOTE | 2024-01-22 16:19 | EDS_ITS ---
HPI <AYANNA Powell - Last Filed: 01/22/24 18:57> History of Present Illness Chief Complaint: Dizziness Narrative Narrative: Patient is a 78-year-old female with history of atrial fibrillation, hyperlipidemia who presents to the [facility] for complaints of dizziness. Patient states that she is on Xarelto 20 mg daily, she is also on flecainide as well as the tells them. Patient is over the last 3 days, she is noticing that she is getting more dizzy. She states the dizziness is of a lightheadedness feeling. She states that her head gets swimmy. And she feels like she needs to sit down. She denies any spinning sensation, denies any nausea or vomiting. Denies any chest pain or shortness of breath. [facility] <AYANNA Powell - Last Filed: 01/22/24 18:57> [facility] Medical History (Updated 01/22/24 @ 18:[address] Doc Reed MD) History of ductal carcinoma in situ (DCIS) of breast HTN (hypertension) PAF (paroxysmal atrial fibrillation) Hyperlipemia Home Medications ?Medication ?Instructions ?Recorded ?Last Taken ?Type ascorbic acid (vitamin C) 1,000 mg 1,000 mg PO DAILY vitamin 04/24/23 Unknown History tablet,extended release (C Complex) cholecalciferol (vitamin D3) 25 25 mcg PO DAILY vitamin 04/24/23 Unknown History mcg (1,000 unit) capsule (Vitamin D3) coQ10 (ubiquinol) 100 mg capsule 100 mg PO DAILY supplement 04/24/23 Unknown History cyanocobalamin (vitamin B-12) 1 tab PO DAILY vitamin 04/24/23 Unknown History diltiazem HCl 180 mg 180 mg PO DAILY arrhythmia 04/24/23 Unknown History capsule,extended release 24 hr (Cardizem CD) lovastatin 20 mg tablet,extended 20 mg PO .COMPLEX cholesterol 04/24/23 Unknown History release 24 hr (Altoprev) magnesium 250 mg tablet 500 mg PO DAILY PRN constipation 04/24/23 Unknown History omega 3 350 mg-dha 235 mg-epa 90 1 cap PO DAILY supplement 04/24/23 Unknown History mg-fish oil 597 mg capsule,delay rel (Abell-3) rivaroxaban PO 01/22/24 Unknown History Allergy/AdvReac Type Severity Reaction Status Date / Time No Known Allergies Allergy Verified 01/22/24 15:53 Family History (Updated 04/24/23 @ 05:[address] Kimberlee Garcia MD) Mother Cardiac arrhythmia Renal cancer Father CVA (cerebral vascular accident) Hypertension Surgical History H/O left mastectomy Social History (Updated 04/24/23 @ 05:[address] Kimberlee Garcia MD) household members: spouse current occupational status: retired and other details: Retired teacher. Smoking Status: Former smoker alcohol intake: never substance use type: does not use ROS <AYANNA Powell - Last Filed: 01/22/24 18:57> ROS ED ROS Narrative Constitutional: Negative for fever, chills, weight loss, weakness Eyes: Negative for vision loss, vision change, double vision ENT: Negative for any sore throat, ear pain, congestion Cardiovascular: Negative for any chest pain, tightness. Positive palpitations Respiratory: Negative for any cough, sputum production, hemoptysis, dyspnea, dyspnea on exertion, orthopnea Gastrointestinal: Negative for any abdominal pain, nausea, vomiting, diarrhea, constipation, blood in stool, blood in vomit : Negative for any urinary frequency, dysuria, retention, blood in urine Muscle skeletal: Negative for any neck pain, back pain Neurological: Negative for any headache, syncope. Positive for feeling of dizziness, lightheadedness Skin: Negative for any rashes, itching, abrasions, lacerations Psychiatric: Negative for any depression, anxiety, stress, suicidal ideation, homicidal ideation Hematologic: Negative for any excessive bruising, easy bleeding EXAM <AYANNA Powell - Last Filed: 01/22/24 18:57> Physical Exam Narrative Exam Narrative: Vital signs reviewed. Patient was alert and orient x 4. I did perform orthostatic vital signs, they did appear to be positive with the change of 20 points in the systolic blood pressure. Patient did become slightly dizzy during standing. HEET: Head normocephalic atraumatic, TMs clear bilaterally. Posterior pharynx is clear, dry mucous membranes. Nares clear bilaterally. Neck: Supple with no lymphadenopathy or tenderness. No signs of meningismus. Cardiac: Bradycardic rate no murmurs gallops or rubs, equal peripheral pulses bilaterally. Respiratory: Lungs clear to auscultation bilaterally. No chest tenderness. Abdomen: Soft, nontender, nondistended. No abdominal bruit or pulsatile masses. No hepatosplenomegaly Extremities: No peripheral edema, no signs of gross trauma or deformity. Active full range of motion of all extremities. Neuro: Cranial nerves II through XII intact, no focal neurological deficits. Skin: Clean dry and intact with no rash, purpura, petechiae, vesicles or pustules. Backs/flank: No CVA tenderness, no midline spinal tenderness, no deformity. Psych: Normal mood and affect. No SI, HI or acute psychosis. Const Vital Signs: 01/22/24 15:53 01/22/24 16:15 01/22/24 16:16 Temperature 97.3 F L Temperature Source Temporal Pulse Rate 55 L Pulse Rate [Lying] Pulse Rate [Standing (for 1 minute prior to obtaining)] Respiratory Rate 18 Respiratory Effort Normal Respiratory Pattern Normal Blood Pressure 134/56 H Blood Pressure [Lying] Blood Pressure [Standing (for 1 minute prior to obtaining)] Blood Pressure Mean 82 Blood Pressure Mean [Lying] Blood Pressure Mean [Standing (for 1 minute prior to obtaining)] Pulse Ox 96 Oxygen Delivery Method Room Air Room Air 01/22/24 16:17 01/22/24 16:17 01/22/24 16:25 Temperature Temperature Source Pulse Rate 47 L Pulse Rate [Lying] 47 L Pulse Rate [Standing (for 1 minute prior to obtaining)] 55 L Respiratory Rate 17 Respiratory Effort Normal Respiratory Pattern Normal Blood Pressure Blood Pressure [Lying] 165/77 H Blood Pressure [Standing (for 1 minute prior to obtaining)] 145/55 H Blood Pressure Mean Blood Pressure Mean [Lying] 106 Blood Pressure Mean [Standing (for 1 minute prior to obtaining)] 85 Pulse Ox 98 Oxygen Delivery Method 01/22/24 16:30 01/22/24 16:45 01/22/24 17:00 Temperature Temperature Source Pulse Rate 57 L 60 52 L Pulse Rate [Lying] Pulse Rate [Standing (for 1 minute prior to obtaining)] Respiratory Rate 13 19 H 13 Respiratory Effort Respiratory Pattern Blood Pressure 138/56 H 147/58 H 132/61 H Blood Pressure [Lying] Blood Pressure [Standing (for 1 minute prior to obtaining)] Blood Pressure Mean 80 84 82 Blood Pressure Mean [Lying] Blood Pressure Mean [Standing (for 1 minute prior to obtaining)] Pulse Ox 95 94 Oxygen Delivery Method Room Air 01/22/24 17:15 01/22/24 17:30 01/22/24 17:45 Temperature Temperature Source Pulse Rate 56 L 56 L Pulse Rate [Lying] Pulse Rate [Standing (for 1 minute prior to obtaining)] Respiratory Rate 11 L 15 Respiratory Effort Respiratory Pattern Blood Pressure 139/62 H 137/67 H 145/57 H Blood Pressure [Lying] Blood Pressure [Standing (for 1 minute prior to obtaining)] Blood Pressure Mean 84 88 82 Blood Pressure Mean [Lying] Blood Pressure Mean [Standing (for 1 minute prior to obtaining)] Pulse Ox 95 94 Oxygen Delivery Method Room Air Room Air 01/22/24 18:00 Temperature Temperature Source Pulse Rate 57 L Pulse Rate [Lying] Pulse Rate [Standing (for 1 minute prior to obtaining)] Respiratory Rate 15 Respiratory Effort Respiratory Pattern Blood Pressure 143/72 H Blood Pressure [Lying] Blood Pressure [Standing (for 1 minute prior to obtaining)] Blood Pressure Mean 93 Blood Pressure Mean [Lying] Blood Pressure Mean [Standing (for 1 minute prior to obtaining)] Pulse Ox 96 Oxygen Delivery Method Room Air <Dr. Doc Reed MD - Last Filed: 01/22/24 18:48> Physical Exam Const Vital Signs: 01/22/24 15:53 01/22/24 16:15 01/22/24 16:16 Temperature 97.3 F L Temperature Source Temporal Pulse Rate 55 L Pulse Rate [Lying] Pulse Rate [Standing (for 1 minute prior to obtaining)] Respiratory Rate 18 Respiratory Effort Normal Respiratory Pattern Normal Blood Pressure 134/56 H Blood Pressure [Lying] Blood Pressure [Standing (for 1 minute prior to obtaining)] Blood Pressure Mean 82 Blood Pressure Mean [Lying] Blood Pressure Mean [Standing (for 1 minute prior to obtaining)] Pulse Ox 96 Oxygen Delivery Method Room Air Room Air 01/22/24 16:17 01/22/24 16:17 01/22/24 16:25 Temperature Temperature Source Pulse Rate 47 L Pulse Rate [Lying] 47 L Pulse Rate [Standing (for 1 minute prior to obtaining)] 55 L Respiratory Rate 17 Respiratory Effort Normal Respiratory Pattern Normal Blood Pressure Blood Pressure [Lying] 165/77 H Blood Pressure [Standing (for 1 minute prior to obtaining)] 145/55 H Blood Pressure Mean Blood Pressure Mean [Lying] 106 Blood Pressure Mean [Standing (for 1 minute prior to obtaining)] 85 Pulse Ox 98 Oxygen Delivery Method 01/22/24 16:30 01/22/24 16:45 01/22/24 17:00 Temperature Temperature Source Pulse Rate 57 L 60 52 L Pulse Rate [Lying] Pulse Rate [Standing (for 1 minute prior to obtaining)] Respiratory Rate 13 19 H 13 Respiratory Effort Respiratory Pattern Blood Pressure 138/56 H 147/58 H 132/61 H Blood Pressure [Lying] Blood Pressure [Standing (for 1 minute prior to obtaining)] Blood Pressure Mean 80 84 82 Blood Pressure Mean [Lying] Blood Pressure Mean [Standing (for 1 minute prior to obtaining)] Pulse Ox 95 94 Oxygen Delivery Method Room Air 01/22/24 17:15 01/22/24 17:30 01/22/24 17:45 Temperature Temperature Source Pulse Rate 56 L 56 L Pulse Rate [Lying] Pulse Rate [Standing (for 1 minute prior to obtaining)] Respiratory Rate 11 L 15 Respiratory Effort Respiratory Pattern Blood Pressure 139/62 H 137/67 H 145/57 H Blood Pressure [Lying] Blood Pressure [Standing (for 1 minute prior to obtaining)] Blood Pressure Mean 84 88 82 Blood Pressure Mean [Lying] Blood Pressure Mean [Standing (for 1 minute prior to obtaining)] Pulse Ox 95 94 Oxygen Delivery Method Room Air Room Air 01/22/24 18:00 Temperature Temperature Source Pulse Rate 57 L Pulse Rate [Lying] Pulse Rate [Standing (for 1 minute prior to obtaining)] Respiratory Rate 15 Respiratory Effort Respiratory Pattern Blood Pressure 143/72 H Blood Pressure [Lying] Blood Pressure [Standing (for 1 minute prior to obtaining)] Blood Pressure Mean 93 Blood Pressure Mean [Lying] Blood Pressure Mean [Standing (for 1 minute prior to obtaining)] Pulse Ox 96 Oxygen Delivery Method Room Air ERMELINDA <AYANNA Powell - Last Filed: 01/22/24 18:57> [facility] Lab Data Labs: Laboratory Results - last 24 hr 01/22/24 01/22/24 01/22/24 16:18 16:43 18:21 WBC 7.2 RBC 4.62 Hgb 14.3 Hct 43.8 MCV 94.8 MCH 31.0 MCHC 32.6 RDW Std Deviation 45.7 H RDW Coeff of Yfn 13.1 Plt Count 309 MPV 9.0 Immature Gran % (Auto) 0.300 Neut % (Auto) 60.4 Lymph % (Auto) 27.4 [place] % (Auto) 9.3 Eos % (Auto) 1.9 Baso % (Auto) 0.7 Absolute Neuts (auto) 4.4 Absolute Lymphs (auto) 1.98 Nucleated RBC % 0 Sodium 141 Potassium 4.3 Chloride 110 H Carbon Dioxide 24.0 Anion Gap 7 BUN 24 H Creatinine 0.88 Estim Creat Clear Calc 39.12 Est GFR (MDRD) Af Amer 79 Est GFR (MDRD) Non-Af 66 BUN/Creatinine Ratio 27.2 H Glucose 91 Calcium 10.1 Troponin I High Sens 43 54 B-Natriuretic Peptide 50.9 Urine Color Yellow Urine Clarity Clear Urine pH 5.0 Ur Specific [place] 1.025 Urine Protein 30 H Urine Glucose (UA) Normal Urine Ketones 5 H Urine Occult Blood 25 H Urine Nitrite Negative Urine Bilirubin Negative Urine Urobilinogen Normal Ur Leukocyte Esterase Negative Urine RBC 0 SEEN Urine WBC 0 SEEN Ur Squamous Epith Cells 0 SEEN Urine Bacteria 0 SEEN Urine Mucus 0 SEEN Radiography Diagnostic Testing: Clinical Impression(s) from Imaging Studies Chest X-Ray 01/22/24 16:10 IMPRESSION: No radiographic evidence of acute cardiopulmonary disease. Electronically Signed: Flako Mendez MD at 17:13 EDT , EKG Sinus bradycardia: Attestation: I personally reviewed and interpreted this EKG as follows: Comments: Sinus bradycardia with a rate of 52 bpm, KS interval 148 ms, QRS duration 138 ms, no acute ST elevation, no acute infarct noted. Treatment and Re-Evaluation :: Differential diagnosis includes however is not limited to: Dehydration, hypovolemia orthostatic hypotension, medication hypotension, ACS, NE, fluid overload Patient appears to be in no obvious respiratory distress vital signs are stable, nontoxic-appearing. Patient does have a heart rate of 55, she states it is usually not that low. Orthostatic vital signs were positive on my initial evaluation. Patient at this time will have a cardiac workup, chest x-ray. Patient received 1 L of normal saline. She will be reevaluated. All radiologic examinations were read, reviewed by the emergency department attending. From these reads, a plan of care will be put in place. Patient's chest x-ray shows no radiographic evidence of any acute cardiopulmonary disease. Patient's laboratory values showed a normal CBC, patient's chemistries were unremarkable, patient's troponin was 43, repeat will be drawn. BNP was negative. Urinalysis was negative for any infection. After 1 L of fluid, the patient was able to get up and walk around, her heart rate stayed between 55 and 60, she states that she did feel slightly dizzy however slightly improved. At this time, there is no evidence of any ACS or NE. Patient is doing well. Second opponent was 54. At this time, patient will hold her Cardizem doses for 2-3 doses, she will follow-up closely with her laborer poultry hatchery in her hometown. Patient is happy with the plan of care, instructed return for any worsening symptoms. Patient stable for discharge <Dr. Doc Reed MD - Last Filed: 01/22/24 18:48> [facility] MDM Narrative Medical decision making narrative: I have personally performed a face to face assessment of the patient and have reviewed the GISELA Note. I performed a substantive portion of the visit including all aspects of the following. My santos findings include: History is 2-3 days of random episodes of lightheadedness, like my head is swimming. She denies sensation of movement, vertiginous symptoms, nausea/vomiting, tinnitus, headache. She has done nothing to trigger any these episodes including standing up, changing position, turning her head. They have occurred randomly sometimes at rest while she is sitting and remaining still. Often times they will last for a few minutes, this last episode that she had prior to coming here that started while she was standing at a soccer game watchi ng a grandchild lasted 30-60 minutes before going away. She denies any other associated symptoms of distress discomfort, palpitations. She has a history of paroxysmal atrial fibrillation for which she is on flecainide and Cardizem, no recent dosing changes follows with her laborer poultry hatchery at [employer] in [place]. She has a cardia mobile that she has checked after having an episode before she states it looks like sinus rhythm no A-fib, in the low 50s. Exam is well-appearing no distress, heart is regular no murmurs, lungs clear to auscultation normal neurologic exam no peripheral edema. Medical Decison Making 1 view chest x-ray my interpretation negative for anything acute. ADMISSIONS DIRECTOR performed Holli-Hallpike which were negative. She is not having any kevin vertiginous symptoms. We considered a possibility of this being disequilibrium, but the patient seems to think this is all presyncopal type symptoms. No symptoms of angina. Troponins are negative, EKG shows a sinus rhythm no acute injury. Blood pressures are good, she feels better after IV fluids and is ambulatory without symptoms. Her recommendations at this point given her borderline bradycardia would be to temporarily hold her sustained- release Cardizem for the next 2 or 3 days and talk to her laborer poultry hatchery after the weekend for further recommendations, and to check her heart rate whenever she has other symptoms. That, and to stay well-hydrated which she states she does a poor job of doing, which may be related given her borderline bradycardia which may be her baseline while on flecainide and Cardizem. Other additions or changes: [None] Lab Data Labs: Laboratory Results - last 24 hr 01/22/24 01/22/24 01/22/24 16:18 16:43 18:21 WBC 7.2 RBC 4.62 Hgb 14.3 Hct 43.8 MCV 94.8 MCH 31.0 MCHC 32.6 RDW Std Deviation 45.7 H RDW Coeff of Yfn 13.1 Plt Count 309 MPV 9.0 Immature Gran % (Auto) 0.300 Neut % (Auto) 60.4 Lymph % (Auto) 27.4 [place] % (Auto) 9.3 Eos % (Auto) 1.9 Baso % (Auto) 0.7 Absolute Neuts (auto) 4.4 Absolute Lymphs (auto) 1.98 Nucleated RBC % 0 Sodium 141 Potassium 4.3 Chloride 110 H Carbon Dioxide 24.0 Anion Gap 7 BUN 24 H Creatinine 0.88 Estim Creat Clear Calc 39.12 Est GFR (MDRD) Af Amer 79 Est GFR (MDRD) Non-Af 66 BUN/Creatinine Ratio 27.2 H Glucose 91 Calcium 10.1 Troponin I High Sens 43 54 B-Natriuretic Peptide 50.9 Urine Color Yellow Urine Clarity Clear Urine pH 5.0 Ur Specific [place] 1.025 Urine Protein 30 H Urine Glucose (UA) Normal Urine Ketones 5 H Urine Occult Blood 25 H Urine Nitrite Negative Urine Bilirubin Negative Urine Urobilinogen Normal Ur Leukocyte Esterase Negative Urine RBC 0 SEEN Urine WBC 0 SEEN Ur Squamous Epith Cells 0 SEEN Urine Bacteria 0 SEEN Urine Mucus 0 SEEN Radiography Diagnostic Testing: Clinical Impression(s) from Imaging Studies Chest X-Ray 01/22/24 16:10 IMPRESSION: No radiographic evidence of acute cardiopulmonary disease. Electronically Signed: Flako Mendez MD at 17:13 EDT , Discharge Plan Triage Chief Complaint: Dizziness ED Midlevel Provider: Bennett Laguna ED Provider: Doc Reed Dx/Rx/DC Orders Clinical Impression: Episodic lightheadedness, Bradycardia, Mild dehydration Instructions: ED Dizziness, Uncertain Cause Prescriptions: Continued Altoprev 20 mg tablet extended release 24 hr 20 mg PO .COMPLEX Rx Instructions: 20 mg orally take every other day; C Complex 1,000 mg tablet extended release 1,000 mg PO DAILY cyanocobalamin (vitamin B-12) 1 tab PO DAILY coQ10 (ubiquinol) 100 mg capsule 100 mg PO DAILY magnesium 250 mg tablet 500 mg PO DAILY PRN (Reason: constipation) Patient Comments: takes as needed; one 500 mg tablet Abell-3 350 mg-235 mg- 90 mg-597 mg capsule,delayed release(DR/EC) 1 cap PO DAILY cholecalciferol (vitamin D3) [Vitamin D3] 25 mcg (1,000 unit) capsule 25 mcg PO DAILY rivaroxaban [Xarelto DVT-PE Treat 30d Start] PO Held diltiazem HCl [Cardizem CD] 180 mg capsule,extended release 24hr 180 mg PO DAILY Hold Instructions: Resume on 01/26/24. Or until otherwise instructed by your laborer poultry hatchery, call for instructions after weekend Primary Care Provider: SADI DAVILA Referrals: SADI DAVILA [Other] Activity Restrictions/Additional Instructions: Hold your Cardizem doses the next 3 doses, talk to your Food Scientist. Return for any worsening symptoms Print Language: Lithuanian Disposition Disposition: Home, Self Care
[2024-01-22 16:25] LABS: Absolute Lymphocyte Count 1.98 X10^3/uL (0.83-4.51); Absolute Neutrophil Count 4.4 X10^3/uL (2.0-7.7); Basophil# 0.05 X10^3/uL; Basophil% 0.7 % (0-1); Eosinophil# 0.14 X10^3/uL; Eosinophils% 1.9 % (0-5); Hematocrit 43.8 % (37-47); Hemoglobin 14.3 g/dL (12.0-15.0); Lymphocyte # 1.98 X10^3/ul (0.83-4.51); Lymphocyte % 27.4 % (19-41); Mean Corp Hgb Conc 32.6 g/dL (32-36); Mean Corpuscular Volume 94.8 fL (81-99); Monocyte# 0.67 X10^3/uL; Monocyte% 9.3 % (0-10); NRBC Flagged by Analyzer 0 % (0-5); Neutrophil # 4.36 X10^3/uL (2.7-7.7); Neutrophil % 60.4 % (47-70); Platelet Count 309 K/mm3 (150-450); RBC Distribution Width CV 13.1 % (11.6-14.6); RBC Distribution Width SD 45.7 fl (35.1-43.9); Red Blood Count 4.62 M/mm3 (4.2-5.4); White Blood Count 7.2 K/mm3 (4.4-11.0)
[2024-01-22 16:46] LABS: Anion Gap 7 (5-15); BUN 24 mg/dL (7-18); BUN/Creat Ratio 27.2 RATIO (10-20); Calcium,Total 10.1 mg/dL (8.5-10.1); Chloride 110 mmol/L (98-107); Creatinine, Serum 0.88 mg/dL (0.55-1.02); EST Glomerular Filtration Rate 66 mL/min (>60); Est Glom Filt Rate - Afr Amer 79 mL/min (>60); Estimated Creatinine Clearance 39.12 ml/min; Glucose 91 mg/dL (74-106); Potassium 4.3 mmol/L (3.5-5.1); Sodium Level 141 mmol/L (136-145); Troponin-I HS 43 pg/mL (3.0-54.0); Troponin-I HS (w/2H Reflex) 43 pg/mL (3.0-54.0)
[2024-01-22 16:47] LABS: Bacteria 0 SEEN /hpf (None Seen); Mucous, Urine 0 SEEN /hpf (<or=2+); Red Blood Cells-Urine 0 SEEN /hpf (0-5); Squamous Epithelial Cells - UA 0 SEEN /hpf (5-10); White Blood Cells 0 SEEN /hpf (0-5)
[2024-01-22 16:51] LABS: Color, Urine Yellow (Yellow); Glucose, Dipstick Normal (Normal); Ketone-Dipstick 5 mg/dl (Negative); Leukocyte Esterase-Dipstick Negative /ul (Negative); Nitrite-Dipstick Negative (Negative); Occult Blood-Urine 25 /ul (Negative); Protein-Dipstick 30 mg/dl (Negative); Specific Gravity, Urine 1.025 (1.002-1.030); Urine Bilirubin Dipstick Negative (Negative); Urine Clarity Clear (Clear); Urine Urobilinogen Normal (Normal)
[2024-01-22 16:53] LABS: BNP,B-Type NATRIURETIC PEPTIDE 50.9 pg/mL (0-100)
--- NOTE | 2024-01-22 18:06 | ED.RN ---
ambulated down length of back hallway 2x, HR ranged from 55-63 bpm.
[2024-01-22 18:22] LABS: Reflex Troponin-HS? (from REC) Y
[2024-01-22 18:54] LABS: Troponin-I HS 54 pg/mL (3.0-54.0)
== END 2024-01-22 19:11 | disposition home or self-care (01) ==
PROVIDERS: Nurse Practitioner; Emergency Provider Emergency Medicine; Visit Provider Emergency Medicine
DX: R42 Dizziness and giddiness (principal); I48.0 Paroxysmal atrial fibrillation; R00.1 Bradycardia, unspecified; E86.0 Dehydration; E78.5 Hyperlipidemia, unspecified; I10 Essential (primary) hypertension; Z79.01 Long term (current) use of anticoagulants; Z79.899 Other long term (current) drug therapy; Z87.891 Personal history of nicotine dependence
CPT/HCPCS: 71045; 80048; 81001; 83880; 84484; 85025; 93005; 96360; 99285; J7030; A4216